=== PATIENT | female | born 1945 | race Caucasian/White ===

== ENCOUNTER 2020-10-07 12:50 | Day surgery (SDCO) | payer MEDICARE ==
[~2020-10-07 12:50] MED LIST: ALPRAZOLAM 0.0.25 MG PO; ASPIRIN325 MG PO; BENICAR HCT 401 EAC1 PO; BETAPACE80 MG PO; CIPRO500 MG PO; FEOSOL325 M1 PO; LIPITOR40 MG PO; LOPRESSOR50 MG PO; METRONIDAZOLE500 MG PO; NITROQUIK SL0.4 MG SL; NORCO 5-325 TA1 EACH PO; POTASSIUM CHLO20 ME2 PO; PREDNISONE 20MG20 MG PO; PROAIR DIGIHAL90 MCG INH; SYNTHROID50 MCG PO
[2020-10-07 13:22] LABS: BASOPHIL 0.8 % (0-2); EOSINOPHIL 3.3 % (0-7); HGB 12.2 g/dl (12.5-16.0); LYMPHOCYTE 20.4 % (15-48); MCH 32.4 pg (25.0-31.0); MCHC 34.9 g/dL (32.0-36.0); MCV 92.8 fL (78.0-100.0); MONOCYTE 7.5 % (0-12); NEUTROPHIL 67.7 % (41-80); NRBC 0; PLT 438 K/uL (150-400); RBC 3.77 M/uL (4.20-5.40); RDW 11.6 % (11.5-14.0); WBC 9.7 K/uL (4.0-10.5)
[2020-10-07 13:45] LABS: BILIRUBIN NEGATIVE (NEGATIVE); BLOOD NEGATIVE Ery/uL (NEGATIVE); CLARITY CLEAR (CLEAR); COLOR YELLOW (YELLOW); GLUCOSE (U) NORMAL (NORMAL); LEUKOCYTES NEGATIVE Leu/uL (NEGATIVE); NITRITE NEGATIVE (NEGATIVE); PROTEIN NEGATIVE (NEGATIVE); SPECIFIC GRAVITY 1.015 (1.001-1.030); UROBILINOGEN 0.2 mg/dL (0.2-1.0)
[2020-10-07 13:53] LABS: ALBUMIN 3.4 g/dL (3.4-5.0); BILIRUBIN - TOTAL 0.2 mg/dL (0.2-1.0); BUN/CREAT RATIO (CALC) 14.7 RATIO; CREATININE 0.75 mg/dL (0.51-0.95); POTASSIUM 3.7 mmol/L (3.5-5.1); TOTAL PROTEIN 7.4 g/dL (6.4-8.2)
--- NOTE | 2020-10-07 17:53 | NUR ---
PATIENT EXPRESSED CONCERNS ABOUT COLONOSCOPY TOMORROW. ASKED PRIMARY RN IF SHE RECEIVED IN REPORT THAT THE PATIENT WOULD BE GOING FOR A COLONOSCOPY TOMORROW. PRIMARY RN, SHARA DENIED RECEIVING THAT INFORMATION IN REPORT. I CALLED DR. DICKENS, ADMITTING HOSPITALIST TO CLARIFY, HE STATED THAT THE ER PROVIDER DID SPEAK WITH THE SURGEON, DR FERREIRA AND THAT THE PATIENT WOULD POTENTIALLY GO FOR A COLONOSCOPY TOMORROW. I ASKED DR DICKENS TO PLEASE CALL DR FERREIRA HIMSELF TO CLAIRIFY IF BOWEL PREP ORDERS ARE NEEDED. HE STATED HE WOULD CONTACT THE SURGEON.
[2020-10-07] MEDS ORDERED: ASPIRIN EC81 M1 PO (18:20)
[2020-10-07] MEDS ORDERED: FEOSOL325 MG PO (18:24)
[2020-10-07] MEDS ORDERED: FOLIC ACID1 MG PO (18:29)
[2020-10-08 05:35] LABS: BASOPHIL 0.6 % (0-2); EOSINOPHIL 2.4 % (0-7); HCT 32.4 % (37.0-47.0); HGB 11.2 g/dl (12.5-16.0); LYMPHOCYTE 14.7 % (15-48); MCH 32.1 pg (25.0-31.0); MCHC 34.6 g/dL (32.0-36.0); MCV 92.8 fL (78.0-100.0); MONOCYTE 5.3 % (0-12); MPV 10.1 fL (6.0-9.5); NEUTROPHIL 76.7 % (41-80); NRBC 0; PLT 397 K/uL (150-400); RBC 3.49 M/uL (4.20-5.40); RDW 11.6 % (11.5-14.0); WBC 13.8 K/uL (4.0-10.5)
[2020-10-08 05:52] LABS: BUN/CREAT RATIO (CALC) 14.9 RATIO; CREATININE 0.67 mg/dL (0.51-0.95); MAGNESIUM 1.4 mg/dL (1.8-2.4)
--- NOTE | 2020-10-09 11:40 | NUR ---
per patient, she has a cane, chower chair, wheelchair, 3/ at home. No other DME needed. Granddaughter lives with her. Daughter coming to stay with her, possibly permanent. No other needs identified.
[2020-10-09] MEDS ORDERED: MIRALAX17 GM PO (11:55)
== END 2020-10-09 13:30 | disposition home or self-care (01) ==
LOC: FER 12:50 → FMS 16:01
PROVIDERS: Emergency Medicine; ADMIT Internal Medicine
DX: K63.3 Ulcer of intestine (principal); K63.89 Other specified diseases of intestine; K56.699 Other intestinal obstruction unspecified as to partial versus complete obstruction; K58.1 Irritable bowel syndrome with constipation; G89.29 Other chronic pain; R10.32 Left lower quadrant pain; R91.1 Solitary pulmonary nodule; I25.10 Atherosclerotic heart disease of native coronary artery without angina pectoris; I48.0 Paroxysmal atrial fibrillation; K21.9 Gastro-esophageal reflux disease without esophagitis; E03.9 Hypothyroidism, unspecified; F41.9 Anxiety disorder, unspecified; F17.210 Nicotine dependence, cigarettes, uncomplicated; I10 Essential (primary) hypertension; I25.2 Old myocardial infarction; Z20.822 Contact with and (suspected) exposure to COVID-19; E78.5 Hyperlipidemia, unspecified; I73.9 Peripheral vascular disease, unspecified; Z79.82 Long term (current) use of aspirin; Z79.899 Other long term (current) drug therapy; Z88.8 Allergy status to other drugs, medicaments and biological substances; Z95.5 Presence of coronary angioplasty implant and graft
CPT/HCPCS: 36415; 80048; 80053; 81003; 82150; 82378; 83690; 83735; 85025; 88305; 93005; G0378; J1610; J2405; J2704; J3475; J3480; J7030; J7120; Q9967; U0002

== ENCOUNTER 2021-03-14 06:20 | Inpatient (IN) | payer MEDICARE ==
[~2021-03-14] VITALS: Ht 155 cm
[~2021-03-14 06:20] MED LIST changes: +ASPIRIN EC81 M1 PO; +DAILY-VITE1 EACH PO; +FEOSOL325 MG PO; +FOLIC ACID1 MG PO; +MIRALAX17 GM PO; +VITAMIN B122500 MCG PO; +VITAMIN D3125 MC2 PO
[2021-03-14 07:00] LABS: BASOPHIL 0.5 % (0-2); EOSINOPHIL 3.8 % (0-7); HCT 31.4 % (37.0-47.0); HGB 10.9 g/dl (12.5-16.0); LYMPHOCYTE 16.5 % (15-48); MCHC 34.7 g/dL (32.0-36.0); MCV 95.2 fL (78.0-100.0); MONOCYTE 7.5 % (0-12); MPV 9.8 fL (6.0-9.5); NEUTROPHIL 71.3 % (41-80); NRBC 0; PLT 360 K/uL (150-400); RDW 11.1 % (11.5-14.0); WBC 11.7 K/uL (4.0-10.5)
[2021-03-14 07:11] LABS: BUN/CREAT RATIO (CALC) 9.2 RATIO; CREATININE 0.76 mg/dL (0.51-0.95); POTASSIUM 3.6 mmol/L (3.5-5.1)
[2021-03-14 08:47] LABS: BILIRUBIN NEGATIVE (NEGATIVE); BLOOD TRACE-INTACT Ery/uL (NEGATIVE); CLARITY CLEAR (CLEAR); COLOR YELLOW (YELLOW); GLUCOSE (U) NORMAL (NORMAL); LEUKOCYTES NEGATIVE Leu/uL (NEGATIVE); NITRITE NEGATIVE (NEGATIVE); PROTEIN NEGATIVE (NEGATIVE); SPECIFIC GRAVITY 1.015 (1.001-1.030); UROBILINOGEN 0.2 mg/dL (0.2-1.0); pH 7.5 (5.0-9.0)
[2021-03-14 08:55] LABS: BACTERIA TRACE; URINARY RBC RARE
[2021-03-14] MEDS ORDERED: VITAMIN B-121000 MC1 PO (10:21)
[2021-03-14] MEDS ORDERED: VITAMIN D350 MC3 PO (10:23)
[2021-03-14] MEDS ORDERED: COLACE100 MG PO (10:32)
[2021-03-15] MEDS ORDERED: PERCOCET 5-3251 EACH PO (07:11)
[2021-03-15 08:20] LABS: INR 1.18 (0.9-1.2); PROTHROMBIN TIME 14.4 SECONDS (11.8-13.4); PTT 35.9 SECONDS (24.4-34.7)
[2021-03-16 07:08] LABS: BASOPHIL 0.1 % (0-2); EOSINOPHIL 0 % (0-7); HCT 17.2 % (37.0-47.0); LYMPHOCYTE 5.7 % (15-48); MCH 33.7 pg (25.0-31.0); MCHC 34.9 g/dL (32.0-36.0); MCV 96.6 fL (78.0-100.0); MONOCYTE 5.6 % (0-12); MPV 9.6 fL (6.0-9.5); NEUTROPHIL 88.1 % (41-80); NRBC 0; PLT 170 K/uL (150-400); RBC 1.78 M/uL (4.20-5.40); RDW 11.2 % (11.5-14.0); WBC 12.3 K/uL (4.0-10.5)
[2021-03-16 07:36] LABS: BUN/CREAT RATIO (CALC) 13.6 RATIO; CREATININE 0.59 mg/dL (0.51-0.95)
--- NOTE | 2021-03-16 15:38 | NUR ---
MET WITH PT. DISUSSED HER OPTIONS FOR REHAB. I.E. INPATIENT [facility], HOME HEALTH AND OUTPT REHAB. GAVE PT. A LIST OF FACILITES AND HOME HEALTH AGENCIES WLL OUTPT. PT. WILL NEED A ROLLING WALKER AND 10/04 IF SHE GOES HOME. PT. WILL DISCUSS HER OPTIONS WITH HER SPOUSE.
[2021-03-17 07:01] LABS: BASOPHIL 0.2 % (0-2); EOSINOPHIL 1.2 % (0-7); HCT 27.2 % (37.0-47.0); LYMPHOCYTE 17.3 % (15-48); MCH 32.2 pg (25.0-31.0); MCHC 34.6 g/dL (32.0-36.0); MCV 93.2 fL (78.0-100.0); NEUTROPHIL 73.9 % (41-80); NRBC 0; PLT 156 K/uL (150-400); RBC 2.92 M/uL (4.20-5.40); RDW 13.3 % (11.5-14.0); WBC 10.5 K/uL (4.0-10.5)
[2021-03-17 07:14] LABS: HGB 9.4 g/dl (12.5-16.0)
[2021-03-17 07:23] LABS: BUN/CREAT RATIO (CALC) 12.3 RATIO; CREATININE 0.57 mg/dL (0.51-0.95); POTASSIUM 3.5 mmol/L (3.5-5.1)
[2021-03-17] MEDS ORDERED: FEOSOL325 MG PO (11:24)
[2021-03-17] MEDS ORDERED: 3IN1 COMMODE XX (11:24)
[2021-03-17] MEDS ORDERED: ULTRA-LIGHT RO1 EACH XX (11:24)
[2021-03-17] MEDS ORDERED: NORCO 5-325 TA1 EACH PO (11:28)
--- NOTE | 2021-03-17 13:14 | NUR ---
INFORMED BY JIMMIE PATTON; THAT PT. REQUESTS [facility]. MET WITH PT. AND SPOUSE. PT ADVISED THAT SHE WOULD LIKE TO HAVE [facility] FOR PT AND NURSING. SHE REQUESTS A ROLLING WALKER AND 10/04 FROM [facility]. HAS A WHEELCHAIR AT HOME. PT. SIGNED CHOICE FORM.
== END 2021-03-17 15:07 | disposition home health service (06) | DRG 481 ==
LOC: FER 06:20 → FMS 08:13
PROVIDERS: Emergency Medicine Emergency Medical Services; Nurse Practitioner Adult Health; Orthopaedic Surgery; ADMIT Internal Medicine
PROC: 0QS704Z Reposition Left Upper Femur with Internal Fixation Device, Open Approach (ICD-10-PCS; 2021-03-15)
PROC: 30233N1 Transfusion of Nonautologous Red Blood Cells into Peripheral Vein, Percutaneous Approach (ICD-10-PCS; principal; 2021-03-16)
DX: S72.142A Displaced intertrochanteric fracture of left femur, initial encounter for closed fracture (principal); D62 Acute posthemorrhagic anemia; E87.1 Hypo-osmolality and hyponatremia; Z20.822 Contact with and (suspected) exposure to COVID-19; I10 Essential (primary) hypertension; I48.0 Paroxysmal atrial fibrillation; I25.10 Atherosclerotic heart disease of native coronary artery without angina pectoris; F17.210 Nicotine dependence, cigarettes, uncomplicated; K59.09 Other constipation; F41.0 Panic disorder [episodic paroxysmal anxiety]; E03.9 Hypothyroidism, unspecified; G89.29 Other chronic pain; E78.5 Hyperlipidemia, unspecified; Z88.8 Allergy status to other drugs, medicaments and biological substances; I25.2 Old myocardial infarction; Z79.82 Long term (current) use of aspirin; Z79.890 Hormone replacement therapy; Z79.899 Other long term (current) drug therapy; Z90.49 Acquired absence of other specified parts of digestive tract; Z90.710 Acquired absence of both cervix and uterus; Z95.5 Presence of coronary angioplasty implant and graft; W19.XXXA Unspecified fall, initial encounter
CPT/HCPCS: 36415; 36430; 71045; 73501; 73502; 76000; 80048; 81001; 85025; 85610; 85730; 86850; 86900; 86901; 86922; 87088; 93005; 94010; 94667; 94668; 94760; 94762; 97110; 97161; 97166; 97530; 97530-GP; 97535; C1713; J0697; J1170; J1200; J2270; J2405; J2704; J3010; J7030; J7120; P9016; U0002